=== PATIENT | female | born 1985 | race Caucasian/White ===

== ENCOUNTER 2018-10-30 13:25 | Emergency (ER) | payer BC, OTHER ==
[~2018-10-30] VITALS: Ht 160 cm; Wt 79.4 kg
--- NOTE | 2018-10-30 13:57 | ED Abdominal Pain ---
General Chief Complaint: Abdominal/GI Problems Stated Complaint: LOWER ABD PAIN Nursing Triage Note: Pt complaining of RLQ pain that started about 20 min ago Sepsis Screen: No Definite Risk Source of Information: Patient Exam Limitations: No Limitations History of Present Illness Date Seen by Provider: October 30, 2018 Time Seen by Provider: 13:56 Initial Comments To ER per private vehicle with reports of rather sudden onset of right-sided periumbilical abdominal pain that began 20 minutes ago. She had associated nausea but no vomiting. She was constipated earlier in the week but has had a bowel movement and is no longer constipated. She's never had this pain before. Denies any dysuria. Timing/Duration: 1/2 Hour Severity/Quality: Severe Location: RLQ, Periumbilical Radiation: No Radiation Activities at Onset: None Modifying Factors: Worsens With Movement Allergies and Home Medications Allergies Coded Allergies: Penicillins (Verified Allergy, Unknown, 10/30/18) acetaminophen (Verified Allergy, Unknown, 10/30/18) oxycodone (Verified Allergy, Unknown, 10/30/18) Patient Home Medication List Home Medication List Reviewed: Yes Review of Systems Review of Systems Constitutional: see HPI; No chills, No fever EENTM: No Symptoms Reported Respiratory: No Symptoms Reported Cardiovascular: No Symptoms Reported Gastrointestinal: See HPI, Abdominal Pain; Denies Constipated, Denies Diarrhea ; Nausea Genitourinary: No Symptoms Reported Musculoskeletal: no symptoms reported Skin: no symptoms reported Psychiatric/Neurological: No Symptoms Reported Endocrine: No Symptoms Reported Hematologic/Lymphatic: No Symptoms Reported Past Tokoits-Fnzclt-Ivthza Hx Patient Social History Alcohol Use: Denies Use Recreational Drug Use: No Smoking Status: Never a Smoker 2nd Hand Smoke Exposure: No Recent Foreign Travel: No Contact w/Someone Who Travel: No Recent Infectious Disease Expo: No Recent Hopitalizations: No Physical Abuse: No Sexual Abuse: No Mistreated: No Past Medical History Surgeries: Yes Gallbladder, Tonsillectomy, Tubal Ligation Respiratory: No Cardiac: No 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 oz. [id number]; BMI Method:Stated General Appearance: WD/WN, no apparent distress HEENT: PERRL/EOMI, normal ENT inspection Neck: non-tender, full range of motion Respiratory: no respiratory distress, no accessory muscle use Cardiovascular: regular rate, rhythm, no murmur Gastrointestinal: normal bowel sounds, soft, rebound, tenderness Extremities: normal range of motion, non-tender Neurologic/Psychiatric: alert, normal mood/affect, oriented x 3 Skin: normal color, warm/dry Progress/Results/Core Measures Results/Orders Lab Results Laboratory Tests Test 10/30/18 13:39 10/30/18 14:03 Range/Units White Blood Count 11.7 H 4.3-11.0 10^3/uL Red Blood Count 4.66 4.35-5.85 10^6/uL Hemoglobin 13.6 11.5-16.0 G/DL Hematocrit 40 35-52 % Mean Corpuscular Volume 86 80-99 FL Mean Corpuscular Hemoglobin 29 25-34 PG Mean Corpuscular Hemoglobin Concent 34 32-36 G/DL Red Cell Distribution Width 13.6 10.0-14.5 % Platelet Count 408 H 130-400 10^3/uL Mean Platelet Volume 10.1 7.4-10.4 FL Neutrophils (%) (Auto) 59 42-75 % Lymphocytes (%) (Auto) 31 12-44 % Monocytes (%) (Auto) 9 0-12 % Eosinophils (%) (Auto) 2 0-10 % Basophils (%) (Auto) 0 0-10 % Neutrophils # (Auto) 6.9 1.8-7.8 X 10^3 Lymphocytes # (Auto) 3.6 1.0-4.0 X 10^3 Monocytes # (Auto) 1.0 0.0-1.0 X 10^3 Eosinophils # (Auto) 0.2 0.0-0.3 10^3/uL Basophils # (Auto) 0.0 0.0-0.1 10^3/uL Sodium Level 140 135-145 MMOL/L Potassium Level 3.6 3.6-5.0 MMOL/L Chloride Level 105 98-107 MMOL/L Carbon Dioxide Level 27 21-32 MMOL/L Anion Gap 8 5-14 MMOL/L Blood Urea Nitrogen 10 7-18 MG/DL Creatinine 0.83 0.60-1.30 MG/DL Estimat Glomerular Filtration Rate > 60 BUN/Creatinine Ratio 12 Glucose Level 87 70-105 MG/DL Calcium Level 10.0 8.5-10.1 MG/DL Corrected Calcium 9.6 8.5-10.1 MG/DL Total Bilirubin 0.4 0.1-1.0 MG/DL Aspartate Amino Transf (AST/SGOT) 15 5-34 U/L Alanine Aminotransferase (ALT/SGPT) 13 0-55 U/L Alkaline Phosphatase 76 40-136 U/L Total Protein 8.1 6.4-8.2 GM/DL Albumin 4.5 3.2-4.5 GM/DL Urine Color YELLOW Urine Clarity SLIGHTLY CLOUDY Urine pH 6.5 5-9 Urine Specific [place] 1.010 L 1.016-1.022 Urine Protein NEGATIVE NEGATIVE Urine Glucose (UA) NEGATIVE NEGATIVE Urine Ketones NEGATIVE NEGATIVE Urine Nitrite NEGATIVE NEGATIVE Urine Bilirubin NEGATIVE NEGATIVE Urine Urobilinogen NORMAL NORMAL MG/DL Urine Leukocyte Esterase NEGATIVE NEGATIVE Urine RBC (Auto) NEGATIVE NEGATIVE Urine RBC NONE /HPF Urine WBC 0-2 /HPF Urine Squamous Epithelial Cells 2-5 /HPF Urine Crystals NONE /LPF Urine Bacteria TRACE /HPF Urine Casts NONE /LPF Urine Mucus NEGATIVE /LPF Urine Culture Indicated NO My Orders Orders - MYRIAM ALVARADO APRN Ua Culture If Indicated (10/30/18 13:51) Cbc With Automated Diff (10/30/18 13:51) Comprehensive Metabolic Panel (10/30/18 13:51) Ed Iv/Invasive Line Start (10/30/18 13:51) Urine Bedside (10/30/18 13:51) Ketorolac Injection (Toradol Injection) (10/30/18 14:00) Fentanyl Injection (Sublimaze Injection (10/30/18 14:00) Ondansetron Injection (Zofran Injectio (10/30/18 14:00) Ct Abd/Pelv W (Appendicitis) (10/30/18 13:54) Iohexol Injection (Omnipaque 350 Mg/Ml 1 (10/30/18 14:30) Received Contrast (Hold Metformin- Contr (10/30/18 14:30) Medications Given in ED Current Medications Medications Dose Ordered Sig/Darell Route Start Time Stop Time Status Last Admin Dose Admin Fentanyl Citrate 50 mcg ONCE ONCE IVP 10/30/18 14:00 10/30/18 14:01 DC 10/30/18 14:06 50 MCG Iohexol 100 ml ONCE ONCE IV 10/30/18 14:30 10/30/18 14:45 DC 10/30/18 14:41 100 ML Ketorolac Tromethamine 15 mg ONCE ONCE IVP 10/30/18 14:00 10/30/18 14:01 DC 10/30/18 14:06 15 MG Ondansetron HCl 8 mg ONCE ONCE IVP 10/30/18 14:00 10/30/18 14:01 DC 10/30/18 14:06 8 MG Vital Signs/I&O 10/30/18 13:35 Temp 97.7 Pulse 81 Resp 16 B/P (MAP) 143/86 (105) Pulse Ox 97 O2 Delivery Room Air Blood Pressure Mean: 105 Diagnostic Imaging Diagonstic Imaging: CT Comments NAME: SERGIO BOLTON [facility] REC#: [id number] PT STATUS: REG ER : 1985 PHYSICIAN: MYRIAM ALVARADO APRN ADMIT DATE: 10/30/18/ER Draft Date of Exam:10/30/18 CT ABD/PELV W (APPENDICITIS) PROCEDURE: CT abdomen and pelvis with contrast, rule out appendicitis. TECHNIQUE: Multiple contiguous axial images were obtained through the abdomen and pelvis after the administration of intravenous contrast. INDICATION: Right-sided abdominal pain. COMPARISON: None. FINDINGS: The lung bases are clear. The heart is normal in size. There is no pericardial effusion. The liver demonstrates no focal lesions. Cholecystectomy clips are noted. The spleen appears normal. The pancreas is normal. The adrenal glands appear normal. The kidneys are unremarkable. The bowel loops are nondistended without evidence of obstruction. The appendix is normal (image 94 series 3). There are no secondary signs of appendicitis. There are hyperdensities within the bowel, which likely represent ingested medication. No free fluid or free air is seen. There is nonspecific fatty infiltration of the wall of the colon. No significant pericolonic edema or fluid collections are seen. There are multiple follicles seen in the ovaries bilaterally, with no large masses seen. No lymphadenopathy is seen. No acute osseous abnormality is present. There are mild degenerative changes at L5-S1. IMPRESSION: 1. No appendicitis. 2. No bowel obstruction. No free fluid or free air. 3. Fat density within the colonic wall. This is nonspecific, but can be seen with chronic inflammation. Dictated on workstation # [id number] Dict: 10/30/18 1441 Trans: 10/30/18 1452 [facility] [id number] Interpreted by: CORNELIO BERNAL MD Electronically signed by: Departure Communication (Admissions) NAME: SERGIO BOLTON [facility] REC#: [id number] PT STATUS: REG ER : 1985 PHYSICIAN: MYRIAM ALVARADO APRN ADMIT DATE: 10/30/18/ER Draft Date of Exam:10/30/18 CT ABD/PELV W (APPENDICITIS) PROCEDURE: CT abdomen and pelvis with contrast, rule out appendicitis. TECHNIQUE: Multiple contiguous axial images were obtained through the abdomen and pelvis after the administration of intravenous contrast. INDICATION: Right-sided abdominal pain. COMPARISON: None. FINDINGS: The lung bases are clear. The heart is normal in size. There is no pericardial effusion. The liver demonstrates no focal lesions. Cholecystectomy clips are noted. The spleen appears normal. The pancreas is normal. The adrenal glands appear normal. The kidneys are unremarkable. The bowel loops are nondistended without evidence of obstruction. The appendix is normal (image 94 series 3). There are no secondary signs of appendicitis. There are hyperdensities within the bowel, which likely represent ingested medication. No free fluid or free air is seen. There is nonspecific fatty infiltration of the wall of the colon. No significant pericolonic edema or fluid collections are seen. There are multiple follicles seen in the ovaries bilaterally, with no large masses seen. No lymphadenopathy is seen. No acute osseous abnormality is present. There are mild degenerative changes at L5-S1. IMPRESSION: 1. No appendicitis. 2. No bowel obstruction. No free fluid or free air. 3. Fat density within the colonic wall. This is nonspecific, but can be seen with chronic inflammation. Dictated on workstation # [id number] Dict: 10/30/18 1441 Trans: 10/30/18 1452 [facility] [id number] Interpreted by: CORNELIO BERNAL MD Electronically signed by: Impression Primary Impression: Right lower quadrant pain Additional Impression: Bowel wall thickening Disposition: HOME, SELF-CARE Condition: Stable Departure-Patient Inst. Decision time for Depature: 15:01 Patient Instructions: No Instuctions Given Add. Discharge Instructions: 1. There is no appendicitis. The appendix is normal in appearance. The wall of the colon has a fatty appearance to it which can be seen with long-term inflammation such as perhaps Crohn's disease or ulcerative colitis. You should follow-up with one of the surgeons listed to schedule a colonoscopy within the next few weeks. Take the steroids and antibiotics as directed. Scripts Methylprednisolone (Medrol) 4 Mg Tab.ds.pk 4 MG PO UD for 6 Days, #21 PKG PER DOSE PACK INSTRUCTIONS Prov: MYRIAM ALVARADO APRN 10/30/18 Metronidazole (Metronidazole) 500 Mg Tablet 500 MG PO BID, #10 TAB 0 Refills Prov: MYRIAM ALVARADO APRN 10/30/18 Sulfamethoxazole/Trimethoprim (Bactrim Ds Tablet) 1 Each Tablet 1 EACH PO BID, #10 TAB Prov: MYRIAM ALVARADO APRN 10/30/18 MYRIAM ALVARADO APRN October 30, 2018 13:57
[2018-10-30 13:59] LABS: BASOPHILS % (AUTO) 0 % (0-10); EOSINOPHILS # (AUTO) 0.2 10^3/uL (0.0-0.3); EOSINOPHILS % (AUTO) 2 % (0-10); HEMATOCRIT 40 % (35-52); HEMOGLOBIN 13.6 G/DL (11.5-16.0); LYMPHOCYTES # (AUTO) 3.6 X 10^3 (1.0-4.0); LYMPHOCYTES % (AUTO) 31 % (12-44); MEAN CORPUSCULAR HEMOGLOBIN 29 PG (25-34); MEAN CORPUSCULAR HGB CONC 34 G/DL (32-36); MEAN CORPUSCULAR VOLUME 86 FL (80-99); MEAN PLATELET VOLUME 10.1 FL (7.4-10.4); MONOCYTES % (AUTO) 9 % (0-12); NEUTROPHILS # (AUTO) 6.9 X 10^3 (1.8-7.8); NEUTROPHILS % (AUTO) 59 % (42-75); PLATELET COUNT 408 10^3/uL (130-400); RED CELL DISTRIBUTION WIDTH 13.6 % (10.0-14.5); WHITE BLOOD COUNT 11.7 10^3/uL (4.3-11.0)
[2018-10-30] MEDS ORDERED: ONDANSETRON 4 MG/2 ML (SDV) Z0FRAN IVP ONE (14:00)
[2018-10-30] MEDS ORDERED: KETOROLAC 30 MG/ML VIAL IVP ONE (14:00)
[2018-10-30] MEDS ORDERED: fentaNYL INJECTION 100 MCG/2 ML AMP IVP ONE (14:00)
[2018-10-30 14:12] LABS: ALANINE AMINOTRANSFERASE 13 U/L (0-55); ALBUMIN 4.5 GM/DL (3.2-4.5); ALKALINE PHOSPHATASE 76 U/L (40-136); BILIRUBIN,TOTAL 0.4 MG/DL (0.1-1.0); BUN/CREATININE RATIO 12; CARBON DIOXIDE 27 MMOL/L (21-32); CHLORIDE 105 MMOL/L (98-107); CREATININE SERUM 0.83 MG/DL (0.60-1.30); GFR ESTIMATED > 60; GLUCOSE 87 MG/DL (70-105); POTASSIUM 3.6 MMOL/L (3.6-5.0); SODIUM 140 MMOL/L (135-145); TOTAL PROTEIN 8.1 GM/DL (6.4-8.2)
[2018-10-30 14:18] LABS: BILIRUBIN,URINE NEGATIVE (NEGATIVE); CLARITY,URINE SLIGHTLY CLOUDY; COLOR,URINE YELLOW; GLUCOSE, URINE (UA) NEGATIVE (NEGATIVE); KETONES,URINE NEGATIVE (NEGATIVE); LEUKOCYTE ESTERASE ,URINE NEGATIVE (NEGATIVE); NITRITE,URINE NEGATIVE (NEGATIVE); PH,URINE 6.5 (5-9); PROTEIN,URINE NEGATIVE (NEGATIVE); UROBILINOGEN,URINE NORMAL (NORMAL)
[2018-10-30 14:26] LABS: BACTERIA,URINE TRACE /HPF; WBC,URINE 0-2 /HPF
[2018-10-30] MEDS ORDERED: HOLD METFORMIN - RECEIVED CONTRAST 20 ML VIAL IV SCH (14:30)
[2018-10-30] MEDS ORDERED: IOHEXOL 350 MG/ML 100 ML (OMNIPAQUE 350) VIAL IV ONE (14:30)
--- NOTE | 2018-10-30 14:52 | Diagnostic Imaging Report ---
PROCEDURE: CT abdomen and pelvis with contrast, rule out appendicitis. TECHNIQUE: Multiple contiguous axial images were obtained through the abdomen and pelvis after the administration of intravenous contrast. INDICATION: Right-sided abdominal pain. COMPARISON: None. FINDINGS: The lung bases are clear. The heart is normal in size. There is no pericardial effusion. The liver demonstrates no focal lesions. Cholecystectomy clips are noted. The spleen appears normal. The pancreas is normal. The adrenal glands appear normal. The kidneys are unremarkable. The bowel loops are nondistended without evidence of obstruction. The appendix is normal (image 94 series 3). There are no secondary signs of appendicitis. There are hyperdensities within the bowel, which likely represent ingested medication. No free fluid or free air is seen. There is nonspecific fatty infiltration of the wall of the colon. No significant pericolonic edema or fluid collections are seen. There are multiple follicles seen in the ovaries bilaterally, with no large masses seen. No lymphadenopathy is seen. No acute osseous abnormality is present. There are mild degenerative changes at L5-S1. IMPRESSION: 1. No appendicitis. 2. No bowel obstruction. No free fluid or free air. 3. Fat density within the colonic wall. This is nonspecific, but can be seen with chronic inflammation. Dictated by: Dictated on workstation # [id number]
[2018-10-30] MEDS ORDERED: METH4TAB PO (15:03)
[2018-10-30] MEDS ORDERED: METR-145 PO (15:03)
[2018-10-30] MEDS ORDERED: SULF1TAB35 PO (15:03)
[2018-10-30 15:11] VITALS: BP 119/92
== END 2018-10-30 15:11 | disposition home or self-care (01) ==
LOC: ER 13:26
DX: R10.31 Right lower quadrant pain (principal); K63.89 Other specified diseases of intestine; K58.9 Irritable bowel syndrome, unspecified; Z88.0 Allergy status to penicillin; Z88.5 Allergy status to narcotic agent; Z88.6 Allergy status to analgesic agent; Z98.51 Tubal ligation status; Z90.89 Acquired absence of other organs
CPT/HCPCS: 36415; 74177; 80053; 81000; 84703; 85025; 96374; 96375

== ENCOUNTER 2018-11-04 18:03 | Observation (INO) | payer BC ==
[~2018-11-04] VITALS: Ht 160 cm; Wt 82.1 kg
[~2018-11-04 18:03] MED LIST: METH4TAB PO; METR-145 PO; SULF1TAB35 PO
--- NOTE | 2018-11-04 18:13 | ED GI ---
General Chief Complaint: Abdominal/GI Problems Stated Complaint: DEHYDRATED, N/V/D, STOMACH PAIN Source of Information: Patient Exam Limitations: No Limitations History of Present Illness Date Seen by Provider: November 04, 2018 Time Seen by Provider: 18:13 Initial Comments To ER by mother with reports of diffuse abdominal pain, nausea vomiting diarrhea. She was seen here by me on 10/30/18 with right lower quadrant pain [id number]. Labs were unremarkable CT scan showed fatty infiltration of the wall of the colon which is nonspecific but could be seen with chronic inflammation. She was discharged on steroids, Bactrim and Flagyl. She took both the Bactrim and the Flagyl, steroids were too hard on her stomach so she did not take those she did see her primary care provider Dr. Parrish who gave her an injection of steroids on . On 11/01/18 she had a negative stool culture. Today, she presents on her last day of antibiotic treatment with worsening diarrhea, nausea vomiting. The abdominal pain persists but it is not worse.. She called primary care who wanted to direct admit her but was unable to accomplish that so referred her to the emergency room. Timing/Duration: 1 Week Severity/Quality: Moderate Location: Generalized Abdomen Radiation: No Radiation Activities at Onset: None Associated Symptoms: Nausea/Vomiting Allergies and Home Medications Allergies Coded Allergies: Penicillins (Verified Allergy, Unknown, 10/30/18) acetaminophen (Verified Allergy, Unknown, 10/30/18) oxycodone (Verified Allergy, Unknown, 10/30/18) Home Medications Methylprednisolone 4 Mg Tab.ds.pk, 4 MG PO UD PER DOSE PACK INSTRUCTIONS Prescribed by: MYRIAM ALVARADO on 10/30/18 1503 Metronidazole 500 Mg Tablet, 500 MG PO BID Prescribed by: MYRIAM ALVARADO on 10/30/18 1503 Sulfamethoxazole/Trimethoprim 1 Each Tablet, 1 EACH PO BID Prescribed by: MYRIAM ALVARADO on 10/30/18 1503 Patient Home Medication List Home Medication List Reviewed: Yes Review of Systems Review of Systems Constitutional: see HPI EENTM: No Symptoms Reported Respiratory: No Symptoms Reported Cardiovascular: No Symptoms Reported Gastrointestinal: See HPI, Abdominal Pain, Diarrhea, Nausea, Vomiting Genitourinary: No Symptoms Reported Musculoskeletal: no symptoms reported Skin: no symptoms reported Psychiatric/Neurological: No Symptoms Reported Endocrine: No Symptoms Reported Hematologic/Lymphatic: No Symptoms Reported Past Fczfrst-Pprivf-Uclihb Hx Patient Social History 2nd Hand Smoke Exposure: No Recent Foreign Travel: No Contact w/Someone Who Travel: No Recent Hopitalizations: No Past Medical History Surgeries: Yes Gallbladder, Tonsillectomy, Tubal Ligation Respiratory: No Cardiac: No 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 oz. 79.661486ad; BMI Method:Stated General Appearance: WD/WN, no apparent distress HEENT: PERRL/EOMI, normal ENT inspection Neck: non-tender, full range of motion Respiratory: no respiratory distress, no accessory muscle use Cardiovascular: regular rate, rhythm, no murmur Gastrointestinal: normal bowel sounds, soft, tenderness (exquisitely tender to palpation on the right side) Extremities: normal range of motion, non-tender Neurologic/Psychiatric: alert, normal mood/affect, oriented x 3 Skin: normal color, warm/dry Progress/Results/Core Measures Results/Orders Lab Results Laboratory Tests Test 11/04/18 18:13 11/04/18 18:21 Range/Units White Blood Count 15.1 H 4.3-11.0 10^3/uL Red Blood Count 5.08 4.35-5.85 10^6/uL Hemoglobin 14.7 11.5-16.0 G/DL Hematocrit 43 35-52 % Mean Corpuscular Volume 85 80-99 FL Mean Corpuscular Hemoglobin 29 25-34 PG Mean Corpuscular Hemoglobin Concent 34 32-36 G/DL Red Cell Distribution Width 13.5 10.0-14.5 % Platelet Count 437 H 130-400 10^3/uL Mean Platelet Volume 9.8 7.4-10.4 FL Neutrophils (%) (Auto) 67 42-75 % Lymphocytes (%) (Auto) 24 12-44 % Monocytes (%) (Auto) 8 0-12 % Eosinophils (%) (Auto) 1 0-10 % Basophils (%) (Auto) 0 0-10 % Neutrophils # (Auto) 10.1 H 1.8-7.8 X 10^3 Lymphocytes # (Auto) 3.7 1.0-4.0 X 10^3 Monocytes # (Auto) 1.2 H 0.0-1.0 X 10^3 Eosinophils # (Auto) 0.1 0.0-0.3 10^3/uL Basophils # (Auto) 0.1 0.0-0.1 10^3/uL Neutrophils % (Manual) 70 % Lymphocytes % (Manual) 22 % Monocytes % (Manual) 6 % Eosinophils % (Manual) 2 % Basophils % (Manual) 0 % Band Neutrophils 0 % Blood Morphology Comment NORMAL Erythrocyte Sedimentation Rate 14 0-20 MM/HR Sodium Level 140 135-145 MMOL/L Potassium Level 3.9 3.6-5.0 MMOL/L Chloride Level 105 98-107 MMOL/L Carbon Dioxide Level 20 L 21-32 MMOL/L Anion Gap 15 H 5-14 MMOL/L Blood Urea Nitrogen 6 L 7-18 MG/DL Creatinine 0.87 0.60-1.30 MG/DL Estimat Glomerular Filtration Rate > 60 BUN/Creatinine Ratio 7 Glucose Level 99 70-105 MG/DL Calcium Level 10.2 H 8.5-10.1 MG/DL Corrected Calcium 8.5-10.1 MG/DL Total Bilirubin 0.4 0.1-1.0 MG/DL Aspartate Amino Transf (AST/SGOT) 19 5-34 U/L Alanine Aminotransferase (ALT/SGPT) 19 0-55 U/L Alkaline Phosphatase 88 40-136 U/L C-Reactive Protein High Sensitivity 0.20 0.00-0.50 MG/DL Total Protein 8.4 H 6.4-8.2 GM/DL Albumin 4.6 H 3.2-4.5 GM/DL Lipase 7 L 8-78 U/L Serum Test, Qualitative NEGATIVE NEGATIVE Urine Color YELLOW Urine Clarity VERY CLOUDY H Urine pH 6 5-9 Urine Specific [place] 1.025 H 1.016-1.022 Urine Protein 1+ H NEGATIVE Urine Glucose (UA) NEGATIVE NEGATIVE Urine Ketones NEGATIVE NEGATIVE Urine Nitrite NEGATIVE NEGATIVE Urine Bilirubin NEGATIVE NEGATIVE Urine Urobilinogen NORMAL NORMAL MG/DL Urine Leukocyte Esterase 2+ H NEGATIVE Urine RBC (Auto) 2+ H NEGATIVE Urine RBC 0-2 /HPF Urine WBC 5-10 H /HPF Urine Squamous Epithelial Cells 10-25 H /HPF Urine Crystals NONE /LPF Urine Bacteria MODERATE H /HPF Urine Casts NONE /LPF Urine Mucus SMALL H /LPF Urine Yeast FEW H /HPF Urine Culture Indicated YES My Orders Orders - MYRIAM ALVARADO APRN Cbc With Automated Diff (11/04/18 18:08) Comprehensive Metabolic Panel (11/04/18 18:08) Ua Culture If Indicated (11/04/18 18:08) Hcg,Qualitative Serum (11/04/18 18:08) Ed Iv/Invasive Line Start (11/04/18 18:08) Lipase (11/04/18 18:08) Ondansetron Injection (Zofran Injectio (11/04/18 18:15) Ns Iv 1000 Ml (Sodium Chloride 0.9%) (11/04/18 18:15) Erythrocyte Sedimentation Rate (11/04/18 18:14) Hs C Reactive Protein (11/04/18 18:14) Methylprednisolone Sod Succ (Solu-Medrol (11/04/18 18:15) Fentanyl Injection (Sublimaze Injection (11/04/18 18:15) Manual Differential (11/04/18 18:13) Urine Culture (11/04/18 18:21) Promethazine Injection (Phenergan Injec (11/04/18 18:45) Ct Abd/Pelv W (Appendicitis) (11/04/18 18:56) Antacid Suspension (Mylanta Suspension (11/04/18 19:15) Lidocaine 2% Viscous 15 Ml (Xylocaine Vi (11/04/18 19:15) Medications Given in ED Current Medications Medications Dose Ordered Sig/Darell Route Start Time Stop Time Status Last Admin Dose Admin Al Hydrox/Mg Hydrox/Simethicone 30 ml ONCE ONCE PO 11/04/18 19:15 11/04/18 19:16 DC 11/04/18 19:27 30 ML Fentanyl Citrate 50 mcg ONCE ONCE IVP 11/04/18 18:15 11/04/18 18:16 DC 11/04/18 18:28 50 MCG Lidocaine HCl 10 ml ONCE ONCE PO 11/04/18 19:15 11/04/18 19:16 DC 11/04/18 19:27 10 ML Methylprednisolone Sodium Succinate 125 mg ONCE ONCE IVP 11/04/18 18:15 11/04/18 18:16 DC 11/04/18 18:27 125 MG Promethazine HCl 12.5 mg ONCE ONCE IVP 11/04/18 18:45 11/04/18 18:46 DC 11/04/18 18:58 12.5 MG Vital Signs/I&O 11/04/18 18:09 Temp 97.6 Pulse 80 Resp 18 B/P (MAP) 152/100 (117) Pulse Ox 99 O2 Delivery Room Air Departure Communication (Admissions) Time/Spoke to Admitting Phy: 19:[address] Vora, will admit consult surgery, no antibiotics or steroids at this time except for the first dose of Solu-Medrol given in the emergency room. Time/Spoke to Consulting Phy: 19:[address] Yan, agrees to consult. Impression Primary Impression: intractable nausea vomiting diarrhea Disposition: ADMITTED INPATIENT Condition: Stable Admissions Decision to Admit Reason: Admit from ER (General) Decision to Admit/Date: November 04, 2018 Time/Decision to Admit Time: 19:54 Departure-Patient Inst. Referrals: KAREEM PARRISH MD (PCP/Family) Primary Care Physician MYRIAM ALVARADO APRN November 04, 2018 18:13
[2018-11-04] MEDS ORDERED: methylPREDNISolone 125 MG (Solu-MEDROL) VIAL IVP ONE (18:15)
[2018-11-04] MEDS ORDERED: ONDANSETRON 4 MG/2 ML (SDV) Z0FRAN IVP ONE (18:15)
[2018-11-04] MEDS ORDERED: NS IV 1000 ML 1,000 ML IV SCH (18:15)
[2018-11-04] MEDS ORDERED: fentaNYL INJECTION 100 MCG/2 ML AMP IVP ONE (18:15)
[2018-11-04 18:22] LABS: BASOPHILS # (AUTO) 0.1 10^3/uL (0.0-0.1); BASOPHILS % (AUTO) 0 % (0-10); EOSINOPHILS # (AUTO) 0.1 10^3/uL (0.0-0.3); EOSINOPHILS % (AUTO) 1 % (0-10); HEMATOCRIT 43 % (35-52); HEMOGLOBIN 14.7 G/DL (11.5-16.0); LYMPHOCYTES # (AUTO) 3.7 X 10^3 (1.0-4.0); LYMPHOCYTES % (AUTO) 24 % (12-44); MEAN CORPUSCULAR HEMOGLOBIN 29 PG (25-34); MEAN CORPUSCULAR HGB CONC 34 G/DL (32-36); MEAN CORPUSCULAR VOLUME 85 FL (80-99); MEAN PLATELET VOLUME 9.8 FL (7.4-10.4); MONOCYTES # (AUTO) 1.2 X 10^3 (0.0-1.0); MONOCYTES % (AUTO) 8 % (0-12); NEUTROPHILS # (AUTO) 10.1 X 10^3 (1.8-7.8); NEUTROPHILS % (AUTO) 67 % (42-75); PLATELET COUNT 437 10^3/uL (130-400); RED CELL DISTRIBUTION WIDTH 13.5 % (10.0-14.5); WHITE BLOOD COUNT 15.1 10^3/uL (4.3-11.0)
[2018-11-04 18:28] LABS: BILIRUBIN,URINE NEGATIVE (NEGATIVE); CLARITY,URINE VERY CLOUDY; COLOR,URINE YELLOW; GLUCOSE, URINE (UA) NEGATIVE (NEGATIVE); KETONES,URINE NEGATIVE (NEGATIVE); LEUKOCYTE ESTERASE ,URINE 2+ (NEGATIVE); NITRITE,URINE NEGATIVE (NEGATIVE); PH,URINE 6 (5-9); PROTEIN,URINE 1+ (NEGATIVE); UROBILINOGEN,URINE NORMAL (NORMAL)
[2018-11-04 18:36] LABS: BACTERIA,URINE MODERATE /HPF; RBC,URINE 0-2 /HPF
[2018-11-04 18:37] LABS: YEAST,URINE FEW /HPF
[2018-11-04 18:39] LABS: ALBUMIN 4.6 GM/DL (3.2-4.5); ALKALINE PHOSPHATASE 88 U/L (40-136); BILIRUBIN,TOTAL 0.4 MG/DL (0.1-1.0); BUN/CREATININE RATIO 7; CALCIUM 10.2 MG/DL (8.5-10.1); CARBON DIOXIDE 20 MMOL/L (21-32); CHLORIDE 105 MMOL/L (98-107); CREATININE SERUM 0.87 MG/DL (0.60-1.30); GFR ESTIMATED > 60; GLUCOSE 99 MG/DL (70-105); LIPASE 7 U/L (8-78); POTASSIUM 3.9 MMOL/L (3.6-5.0); SODIUM 140 MMOL/L (135-145); TOTAL PROTEIN 8.4 GM/DL (6.4-8.2)
[2018-11-04] MEDS ORDERED: PROMETHAZINE INJ 25 MG/ML (PHENERGAN) AMP IVP ONE (18:45)
[2018-11-04 18:49] LABS: BAND NEUTROPHILS 0 %; BASOPHILS % (MANUAL) 0 %; LYMPHOCYTES % (MANUAL) 22 %; MONOCYTES % (MANUAL) 6 %; NEUTROPHILS % (MANUAL) 70 %
[2018-11-04 18:50] LABS: EOSINOPHILS % (MANUAL) 2 %; ERYTHROCYTE SEDIMENTATION RATE 14 MM/HR (0-20); RBC MORPH NORMAL
[2018-11-04 18:51] LABS: ALANINE AMINOTRANSFERASE 19 U/L (0-55)
[2018-11-04] MEDS ORDERED: ANTACID SUSP 30 ML UDC (MYLANTA) PO ONE (19:15)
[2018-11-04] MEDS ORDERED: LIDOCAINE 2% VISCOUS 15 ML UDC PO ONE (19:15)
--- NOTE | 2018-11-04 20:04 | Diagnostic Imaging Report ---
INDICATION: Right-sided flank pain with nausea and vomiting. CT of the abdomen and pelvis obtained with IV contrast bolus. Comparison made to 10/30/2018. Visualized portions of the lung bases are clear. There are no pleural fluid collections. There is no free intraperitoneal air. The liver shows a tiny cyst in the right lobe anteriorly and posteriorly. Patient has had prior cholecystectomy. Spleen, adrenals, and pancreas are normal. The kidneys bilaterally show no hydronephrosis or mass. There is no retroperitoneal mass or adenopathy. There is no ascites or abnormal fluid collection. There is no pelvic mass or free fluid. Visualized bowel loops appear unremarkable. There is a 2.1 cm left adnexal cyst which is new compared to the prior study. There is no periappendiceal inflammatory change. IMPRESSION: A 2.1 cm left adnexal cyst. No CT evidence of appendicitis or acute process otherwise seen. Evidence of previous cholecystectomy. Dictated by: Dictated on workstation # [id number]
[2018-11-04 20:35] VITALS: BP 112/70
--- NOTE | 2018-11-04 20:35 | NUR ---
SERGIO BOLTON Za admitted to room 429-1, with an admitting diagnosis of intractable nausea/vomiting/diarrhea, on 11/04/18 from ER via , accompanied by and er staff. SERGIO BOLTON introduced to surroundings, call light, bed controls, phone, TV, temperature control, lights, meal times, smoking policy, visitor policy, side rail policy, bathrooms and showers. Patient Rights given to patient in the handbook. SERGIO BOLTON verbalizes understanding that [facility] is not responsible for the loss or damage to any personal effects or valuables that are kept in the patients possession during their hospitalization.
[2018-11-04 20:41] VITALS: BP 112/70
[2018-11-04] MEDS ORDERED: LACTATED RINGERS 1,000 ML IV ONE (21:02)
[2018-11-04] MEDS ORDERED: fluCOnazole (DIFLUCAN) 100 MG TAB PO SCH (21:10)
[2018-11-04] MEDS ORDERED: PROMETHAZINE INJ 25 MG/ML (PHENERGAN) AMP IV PRN (21:15)
[2018-11-04] MEDS ORDERED: fentaNYL INJECTION 100 MCG/2 ML AMP IV PRN (21:15)
[2018-11-04] MEDS: LACTATED RINGERS 1,000 ML IV SCH (21:26)
[2018-11-05 00:05] VITALS: BP 116/56
[2018-11-05] MEDS: HYOSCYAMINE 0.125 MG (LEVSIN) TAB SL SCH ×3 (00:06→11:43)
[2018-11-05] MEDS: ONDANSETRON 4 MG/2 ML (SDV) Z0FRAN IV PRN ×2 (00:13→09:07)
[2018-11-05 03:20] VITALS: BP 115/66
[2018-11-05] MEDS: LACTATED RINGERS 1,000 ML IV SCH ×2 (03:20→08:04)
[2018-11-05 06:53] LABS: BASOPHILS % (AUTO) 0 % (0-10); EOSINOPHILS % (AUTO) 0 % (0-10); HEMATOCRIT 38 % (35-52); HEMOGLOBIN 12.8 G/DL (11.5-16.0); LYMPHOCYTES # (AUTO) 1.2 X 10^3 (1.0-4.0); LYMPHOCYTES % (AUTO) 8 % (12-44); MEAN CORPUSCULAR HEMOGLOBIN 29 PG (25-34); MEAN CORPUSCULAR HGB CONC 34 G/DL (32-36); MEAN CORPUSCULAR VOLUME 86 FL (80-99); MEAN PLATELET VOLUME 9.7 FL (7.4-10.4); MONOCYTES # (AUTO) 0.1 X 10^3 (0.0-1.0); MONOCYTES % (AUTO) 1 % (0-12); NEUTROPHILS # (AUTO) 14.2 X 10^3 (1.8-7.8); NEUTROPHILS % (AUTO) 91 % (42-75); PLATELET COUNT 382 10^3/uL (130-400); RED CELL DISTRIBUTION WIDTH 13.1 % (10.0-14.5); WHITE BLOOD COUNT 15.6 10^3/uL (4.3-11.0)
[2018-11-05 07:12] LABS: BUN/CREATININE RATIO 9; CALCIUM 8.9 MG/DL (8.5-10.1); CARBON DIOXIDE 19 MMOL/L (21-32); CHLORIDE 110 MMOL/L (98-107); GFR ESTIMATED > 60; GLUCOSE 136 MG/DL (70-105); POTASSIUM 4.3 MMOL/L (3.6-5.0); SODIUM 138 MMOL/L (135-145)
[2018-11-05 08:00] VITALS: BP 106/61
[2018-11-05 12:00] VITALS: BP 114/78
--- NOTE | 2018-11-05 14:18 | History & Physical-Hospitalist ---
History of Present Illness HPI/Chief Complaint The patient is a 33-year-old white female who was admitted from the emergency room after she presented with unabating diffuse abdominal pain. Combined with nausea vomiting and diarrhea. She had been there last week with similar complaints. The CT performed at that time showed thickening of the colonic wall , which was stated to be possibly fatty infiltration. She had been given steroids and antibiotics which helped for a few days, but as they tapered off. She was again stricken with complaints. She reports that the onset of this goes back at least 5 years. She states that ultimately she had a cholecystectomy, which in fact increased her diarrhea for a period of time. A bit after that she had a colonoscopy which was nondiagnostic. Multiple providers have suggested the possibility of inflammatory bowel disease or specifically Crohn's disease. This is never been confirmed. She sees Dr. Barnes and had been scheduled for a colonoscopy for of this week. There has never been blood in the stools. There is no history of perirectal abscess or fistula. She has tried multiple dietary restrictions, which perhaps helped a bit but not consistently. She has settled down with her IV fluid replacement and anti-emetics. Date Seen 11/05/18 Time Seen by a Provider: 14:16 Attending Physician Greg Henriquez MD PCP Ryan Barnes MD Referring Physician Date of Admission November 04, 2018 at 18:52 Home Medications & Allergies Home Medications Reviewed patient Home Medication Reconciliation performed by pharmacy medication reconciliations brass instrument repair technician and/or nursing. Patients Allergies have been reviewed. Allergies Allergies Coded Allergies Penicillins (Verified Allergy, Unknown, 10/30/18) acetaminophen (Verified Allergy, Unknown, 10/30/18) oxycodone (Verified Allergy, Unknown, 10/30/18) Past Sdwczej-Cmihtc-Ewswdj Hx Past Med/Social Hx: Reviewed Nursing Past Med/Soc Hx Patient Social History Alcohol Use: Denies Use Recreational Drug Use: No 2nd Hand Smoke Exposure: No Physical Abuse Screen: No Sexual Abuse: No Recent Foreign Travel: No Contact w/other who traveled: No Recent Hopitalizations: No Recent Infectious Disease Expo: No Seasonal Allergies Seasonal Allergies: No Past Medical History Surgeries: Gallbladder, Tonsillectomy, Tubal Ligation Currently Using CPAP: No Currently Using BIPAP: No Tubal Ligation Genitourinary: Kidney Stones Gastrointestinal: Colitis, Gastroesophageal Reflux, Crohns Disease, Irritable Bowel History of Blood Disorders: No Family History Arthritis 19 MOTHER Cataracts maternal grandmother Dementia paternal grandmother Diabetes mellitus 19 FATHER (pre-diabetic) FH: aortic aneurysm 19 FATHER paternal grandfather FH: skin cancer 19 FATHER Gout 19 FATHER Hypertension 19 FATHER Irritable bowel syndrome G8 SISTER Kidney stone G8 SISTER Miscarriage 19 MOTHER Review of Systems Constitutional: see HPI EENTM: no symptoms reported Respiratory: no symptoms reported Cardiovascular: no symptoms reported Gastrointestinal: see HPI Genitourinary: no symptoms reported Musculoskeletal: no symptoms reported Skin: other (RAYNAUDS SYNDROME) Psychiatric/Neurological: No Symptoms Reported Physical Exam Physical Exam Vital Signs Vital Signs - First Documented 11/04/18 18:09 Temp 97.6 Pulse 80 Resp 18 B/P (MAP) 152/100 (117) Pulse Ox 99 O2 Delivery Room Air Capillary Refill : Less Than 3 Seconds Height, Weight, BMI Height: 5'3.00" Weight: 181lbs. 3.2oz. 82.165265mb; 31.6 BMI Method:Stated General Appearance: No Apparent Distress, WD/WN Eyes: Bilateral Eye Normal Inspection HEENT: Normal ENT Inspection Neck: Normal Inspection Respiratory: Chest Non Tender, Lungs Clear, Normal Breath Sounds, No Accessory Muscle Use, No Respiratory Distress Cardiovascular: Regular Rate, Rhythm, No Edema, No Gallop, No JVD, No Murmur, Normal Peripheral Pulses Gastrointestinal: Normal Bowel Sounds, No Organomegaly, Non Tender, Soft Back: Normal Inspection, No CVA Tenderness, No Vertebral Tenderness Extremity: Normal Capillary Refill, Normal Inspection, Normal Range of Motion Neurologic/Psychiatric: Alert, Oriented x3 Results Results/Procedures Labs Laboratory Tests 11/04/18 18:13 11/05/18 06:45 Patient resulted labs reviewed. Assessment/Plan Admission Diagnosis Intractable nausea vomiting and diarrhea. Admission Status: Observation Clinical Quality Measures DVT/VTE Risk/Contraindication: Risk Factor Score Per Nursin RFS Level Per Nursing on Admit: 2=Moderate GREG HENRIQUEZ MD November 05, 2018 14:18
--- NOTE | 2018-11-05 14:23 | Discharge Inst-Simple/Standard ---
Discharge Inst-Standard Patient Instructions/Follow Up Plan of Care/Instructions/FU: Keep appointment for colonoscopy . Clear liquid diet until then. Take colon prep as previously directed beginning Sunday night. Activity as Tolerated: Yes Discharge Diet: Other Diet DARSHAN HENRIQUEZ MD November 05, 2018 14:23
[2018-11-05 14:45] VITALS: BP 114/78
--- NOTE | 2018-11-05 15:34 | CONSULTATION REPORT ---
DATE OF SERVICE: 11/05/2018 ATTENDING PRIMARY CARE PHYSICIAN: Dr. Barnes. HISTORY OF PRESENT ILLNESS: The patient is a 33-year-old female who presented to the Emergency Department with nausea, vomiting and diarrhea. She reported that approximately one week ago, she had a similar episode of crampy abdominal pain with nausea and vomiting as well as diarrhea. She states that the CT scan was performed at the time and there was some mild inflammation of the mesentery of the terminal ileum, which may indicate some level of colitis versus a terminal ileitis. There is no appendicitis identified. She had another episode that was similar with nausea and vomiting. At this time, the nausea and vomiting were more severe. She also does report having some diarrhea as well as mucusy stools. She does not recall ever having any blood in her stools. She is currently scheduled for colonoscopy in the next two days. Her signs and symptoms may correlate with some type of inflammatory bowel disease including Crohn's disease based on the CT scan findings as well as her symptoms and slightly more consistent with a Crohn's. She also does report a history of gastroesophageal reflux disease and peptic ulcer disease and currently takes omeprazole 20 mg daily. PAST MEDICAL HISTORY: Asthma. PAST SURGICAL HISTORY: Tonsillectomy, laparoscopic cholecystectomy. ALLERGIES: No known drug allergies. MEDICATIONS: Omeprazole 20 mg daily. SOCIAL HISTORY: Negative smoke, negative alcohol. FAMILY HISTORY: Noncontributory. REVIEW OF SYSTEMS: Well-nourished female, in no acute distress. She is not experiencing any shortness of breath or difficulty breathing. No chest pain, palpitations, diaphoresis. Abdominal pain with intermittent episodes of nausea and vomiting in the past week. No hematemesis, no coffee ground emesis. She also reports associated crampy abdominal pain, more in the right lower abdominal quadrant. She also has had associated diarrhea as well as mucusy stools; however, no red blood per rectum. No fever, chills. No recent inadvertent weight loss. All other review of systems negative. PHYSICAL EXAMINATION: VITAL SIGNS: Stable. Afebrile. CHEST: Clear. Good breath sounds bilaterally. HEART: Regular. No murmurs. EXTREMITIES: No lower extremity edema. Negative Homans sign. HEENT: No scleral icterus. NECK: No cervical lymphadenopathy. ABDOMEN: Soft, nondistended. There is mild discomfort in the lower abdominal quadrants. No peritoneal signs. No hernias. SKIN: Warm, dry. ASSESSMENT AND PLAN: A 33-year-old female with crampy abdominal pain with associated nausea, vomiting as well as diarrhea. She reports that she has had some milder symptoms before in the past; however, in the past week this has become more severe. Her signs and symptoms as well as a recent CT scan, which did show some inflammation of the mesentery near the terminal ileum. She is scheduled for a colonoscopy, which may show some areas of inflammation, which may provide more information on the etiology of her symptoms including identification of an inflammatory bowel disease as well as what type and proper treatment modality. At this time, we will recommend continuation of a clear liquid diet and a bowel prep is already instructed and proceed with her colonoscopy in the next two days. Job ID: [id number] DocumentID: [id number] Dictated Date: 11/05/2018 15:02:02 Tentering Machine Feeder Date: 11/05/2018 15:33:34 Dictated By: MARRY SWANSON MD MTDD
[2018-11-05] MEDS ORDERED: POLYETHYLENE GLYCOL 17 GM (MIRALAX) PACK PO SCH (21:00)
[2018-11-06] MEDS ORDERED: CETI10TA20 PO (12:04)
[2018-11-06] MEDS ORDERED: ONDA8TAB13 PO (12:04)
[2018-11-06] MEDS ORDERED: PANT40TA3 PO (12:04)
--- NOTE | 2018-11-08 14:03 | Physician Query-Final Dx ---
Final Diagnosis Give Final Diagnosis Please give Final Diagnosis PARVEZ BREWER November 08, 2018 14:02
== END 2018-11-05 14:45 | disposition home or self-care (01) ==
LOC: EDUNIT# 18:03 → ER 18:05 → 4TH 18:52
PROVIDERS: ADMIT Internal Medicine; ATTEND Internal Medicine
DX: R11.2 Nausea with vomiting, unspecified (principal); R19.7 Diarrhea, unspecified; K21.9 Gastro-esophageal reflux disease without esophagitis; K27.9 Peptic ulcer, site unspecified, unspecified as acute or chronic, without hemorrhage or perforation
CPT/HCPCS: 36415; 74177; 80048; 80053; 81000; 83690; 84703; 85007; 85025; 85027; 85652; 86141; 87088; 96374; 96375

== ENCOUNTER 2018-11-06 12:00 | Outpatient (CLI) | payer BC ==
[~2018-11-06] VITALS: Ht 160 cm; Wt 82.2 kg
[2018-11-06] MEDS ORDERED: PANT40TA3 PO (12:04)
[2018-11-06] MEDS ORDERED: ONDA8TAB13 PO (12:04)
[2018-11-06] MEDS ORDERED: CETI10TA20 PO (12:04)
== END 2018-11-06 12:10 | disposition home or self-care (01) ==
LOC: PREOP 12:00
PROVIDERS: ATTEND Pediatrics
DX: Z01.818 Encounter for other preprocedural examination (principal)

== ENCOUNTER 2018-11-07 06:48 | Day surgery (SDC) | payer BC ==
[~2018-11-07] VITALS: Ht 160 cm; Wt 82.2 kg
[~2018-11-07 06:48] MED LIST changes: +CETI10TA20 PO; +ONDA8TAB13 PO; +PANT40TA3 PO
[2018-11-07] MEDS ORDERED: NS IV 500 ML 500 ML ONE (06:53)
[2018-11-07] MEDS ORDERED: MIDAZOLAM 2 MG/2 ML (VERSED) VIAL ONE ×4 (07:16→07:17)
[2018-11-07] MEDS ORDERED: fentaNYL INJECTION 100 MCG/2 ML AMP ONE (07:17)
[2018-11-07] MEDS ORDERED: NS IV 500 ML 500 ML IV PRN (07:24)
[2018-11-07 07:28] VITALS: BP 123/87
[2018-11-07] MEDS ORDERED: fentaNYL INJECTION 100 MCG/2 ML AMP IVP ONE (07:30)
[2018-11-07] MEDS ORDERED: MIDAZOLAM 2 MG/2 ML (VERSED) VIAL IVP ONE (07:30)
--- NOTE | 2018-11-07 08:05 | Progress Note-Pre Operative ---
Pre-Operative Progress Note H&P Reviewed The H&P was reviewed, patient examined and no changes noted. Date Seen by Provider: November 07, 2018 Time Seen by Provider: 08:05 Date H&P Reviewed: November 07, 2018 Time H&P Reviewed: 08:05 Pre-Operative Diagnosis: KAREEM Cruz MD November 07, 2018 08:05
--- NOTE | 2018-11-07 08:27 | Endoscopy Procedure Report ---
Colonoscopy Procedure Performed: Colonoscopy Pre-Operative Diagnosis: colitis Post-Operative Diagnosis: colitis Commercial Representative: None. Indications for Procedure: signs ofcolitis by CT Procedure Details: Informed consent was obtained, the risks, benefits and alternatives to the procedure were explained to the patient. The Halle Pandya, a 33 yr old female, was brought to to surgery area, sedated with 8 mg of Versed and 100 ug of fentanyl. She was placed in the left lateral decubitus position. Under direct visualization the scope was passed easily to the cecum. Cecum is identified by landmarks. ileocecal valve cannulated and terminal ileum biopsied with mild inflammation.Scope was carefully withdrawn. Findings: Ascending Colon: mild inflammatory changes Transverse Colon: none Descending/Sigmoid: mild inflammatory changes Rectum: none Estimated Blood Loss: 0mL Specimens: ileum and biopsies of ascending,transvers and sigomid colon Complications: None; patient tolerated the procedure well. Final Diagnosis: colitis KAREEM PARRISH MD November 07, 2018 08:27
[2018-11-07 08:30] VITALS: BP 122/73
[2018-11-07 09:20] VITALS: BP 118/82
[2018-11-07 09:39] VITALS: BP 118/82
== END 2018-11-07 09:40 | disposition home or self-care (01) ==
LOC: ENDO 06:48
PROVIDERS: ATTEND Pediatrics
DX: K52.9 Noninfective gastroenteritis and colitis, unspecified (principal)

== ENCOUNTER 2018-11-11 21:51 | Emergency (ER) | payer BC ==
[~2018-11-11] VITALS: Ht 160 cm; Wt 77.1 kg
[2018-11-11] MEDS ORDERED: RX-HYOSCYAMINE 0.125 MG SL (LEVSIN) PPK#6 SL STA (22:35)
[2018-11-11] MEDS ORDERED: HYOSCYAMINE 0.125 MG (LEVSIN) TAB SL ONE (22:45)
--- NOTE | 2018-11-11 23:06 | ED GI ---
General Chief Complaint: Abdominal/GI Problems Stated Complaint: ABD PAIN Nursing Triage Note: PT PRESENTS TO ED WITH ABD PAIN. PAIN STARTED IN RLQ THIS AM AND MOVED TO RUQ. PT REPORTS PAIN SQUEEZING PAIN. PT REPORTS DIARRHEA. PT WAS HOSITPALIZED RECENTLY FOR ABD PAIN AND HAD COLONOSCOPY. Sepsis Screen: No Definite Risk Source of Information: Patient Exam Limitations: No Limitations History of Present Illness Date Seen by Provider: November 11, 2018 Time Seen by Provider: 22:29 Initial Comments Here with report of a viral abdominal pain that started this morning. She notes that it's moving on the right side of down. Reports the pain as squeezing cramping. Also has diarrhea. Has had multiple workups since October [address] and colonoscopy with biopsies. All of this is been negative. She has had mildly elevated white count of unknown significance. She is tolerating fluids little bit. She does have Zofran at home but has not tried that today. She does have appointment with Dr. Barnes tomorrow. Denies blood in her stools. Biopsies are negative and stool culture is negative. UA recently shows contaminated culture. Does report that while she was in the hospital she did get sublingual Levsin and that seemed to help. She does not have that at home. Timing/Duration: 12 Hours Severity/Quality: Moderate, Cramping Location: RUQ Radiation: RLQ Activities at Onset: None Modifying Factors: Worsens With Eating; Improves With Resting Associated Symptoms: No Back Pain, No Chest Pain, No Fever/Chills; Nausea/Vomiting; No Shortness of Air, No Weakness Allergies and Home Medications Allergies Coded Allergies: Penicillins (Verified Allergy, Unknown, 11/11/18) acetaminophen (Verified Allergy, Unknown, 11/11/18) oxycodone (Verified Allergy, Unknown, 11/11/18) Home Medications Cetirizine HCl 10 Mg Tablet, 10 MG PO DAILY, (Reported) Ondansetron 8 Mg Tab.rapdis, 8 MG PO PRN, (Reported) Pantoprazole Sodium 40 Mg Tablet.dr, 40 MG PO DAILY, (Reported) Patient Home Medication List Home Medication List Reviewed: Yes Review of Systems Review of Systems Constitutional: see HPI; No chills, No fever EENTM: No Symptoms Reported Respiratory: No Symptoms Reported Cardiovascular: No Symptoms Reported Gastrointestinal: See HPI, Diarrhea, Nausea, Vomiting Psychiatric/Neurological: No Symptoms Reported Past Tynawfc-Zeephd-Atbejh Hx Past Med/Social Hx: Reviewed Nursing Past Med/Soc Hx Patient Social History Alcohol Use: Denies Use Recreational Drug Use: No Smoking Status: Never a Smoker 2nd Hand Smoke Exposure: No Recent Foreign Travel: No Contact w/Someone Who Travel: No Recent Infectious Disease Expo: No Recent Hopitalizations: Yes (11/06 ABD PAIN, COLONOSCOPY) Physical Abuse: No Sexual Abuse: No Seasonal Allergies Seasonal Allergies: No Past Medical History Surgeries: Yes Gallbladder, Tonsillectomy, Tubal Ligation Respiratory: No Currently Using CPAP: No Currently Using BIPAP: No Cardiac: No Neurological: No (Raynaud's disease) 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: Tubal 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 Genitourinary: Yes Kidney Stones Gastrointestinal: Yes (newly dx with Crohns ) Colitis, Gastroesophageal Reflux, Crohns Disease, Irritable Bowel Musculoskeletal: No Endocrine: No HEENT: No Cancer: No Psychosocial: No Integumentary: No Blood Disorders: No Adverse Reaction/Blood Tranf: No Family Medical History Reviewed Nursing Family Hx Arthritis 19 MOTHER Cataracts maternal grandmother Dementia paternal grandmother Diabetes mellitus 19 FATHER (pre-diabetic) FH: aortic aneurysm 19 FATHER paternal grandfather FH: skin cancer 19 FATHER Gout 19 FATHER Hypertension 19 FATHER Irritable bowel syndrome G8 SISTER Kidney stone G8 SISTER Miscarriage 19 MOTHER Physical Exam Vital Signs Vital Signs - First Documented 11/11/18 22:17 Temp 98.0 Pulse 87 Resp 16 B/P (MAP) 140/92 (108) Pulse Ox 98 Capillary Refill : Less Than 3 Seconds Height/Weight/BMI Height: 5'3.00" Weight: 170lbs. 3.2oz. 77.763931bo; 32.1 BMI Method:Stated General Appearance: WD/WN, no apparent distress Neck: full range of motion, supple Respiratory: lungs clear, normal breath sounds Cardiovascular: regular rate, rhythm, no murmur Gastrointestinal: soft, abnormal bowel sounds (hyperactive), tenderness (right sided) Extremities: non-tender, normal inspection Back: normal inspection, no CVA tenderness, no vertebral tenderness Neurologic/Psychiatric: alert, oriented x 3 Skin: normal color, warm/dry Progress/Results/Core Measures Results/Orders My Orders Orders - CASSIDY CARMONA MD Hyoscyamine Sl Tablet (Levsin Sl Tablet) (11/11/18 22:45) Rx-Hyoscyamine Tab (Rx-Levsin Sl) (11/11/18 22:35) Medications Given in ED Current Medications Medications Dose Ordered Sig/Darell Route Start Time Stop Time Status Last Admin Dose Admin Hyoscyamine Sulfate 0.125 mg ONCE ONCE SL 11/11/18 22:45 11/11/18 22:46 DC 11/11/18 22:38 0.125 MG Vital Signs/I&O 11/11/18 22:17 Temp 98.0 Pulse 87 Resp 16 B/P (MAP) 140/92 (108) Pulse Ox 98 Blood Pressure Mean: 108 Progress Progress Note : Progress Note Seen and evaluated. I did discuss with the patient multiple options including rechecking labs. I'm hesitant to redo CT scan as she has had 2 in the last 2 weeks. She is also had recent colonoscopy. The findings seem consistent with irritable bowel type symptoms given the negative workups although she has not been diagnosed with this. She did state that the labs seem to help and wanted to try that first to see and benefit didn't help and we pursue labs. 2305: States the pain is actually tolerable now and we will give her a go pack of Levsin. She will follow-up with Dr. Barnes in the morning. Discharged home with return precautions. Patient verbalize understanding instructions and agreement with plan. Departure Impression Primary Impression: Right sided abdominal pain Disposition: 01 HOME, SELF-CARE Condition: Improved Departure-Patient Inst. Decision time for Depature: 23:07 Referrals: KAREEM BARNES MD (PCP/Family) Primary Care Physician Patient Instructions: Acute Abdomen (Belly Pain), Adult (DC), Irritable Bowel Syndrome (DC) Add. Discharge Instructions: All discharge instructions reviewed with patient and/or family. Voiced understanding. Take medications as directed. Keep appointment with Dr. Barnes tomorrow. Clear liquid or light diet and advance as tolerated. Return for worsening, fever, vomiting, weakness, breathing problems or other concerns as needed. Copy Copies To 1: KAREEM BARNES MD, TIMOTHY D MD November 11, 2018 23:06
[2018-11-11 23:13] VITALS: BP 140/92
== END 2018-11-11 23:13 | disposition home or self-care (01) ==
LOC: EDUNIT# 21:51 → ER 21:52
DX: R10.31 Right lower quadrant pain (principal); R10.11 Right upper quadrant pain; I73.00 Raynaud's syndrome without gangrene; K21.9 Gastro-esophageal reflux disease without esophagitis; K58.9 Irritable bowel syndrome, unspecified; Z87.19 Personal history of other diseases of the digestive system; Z87.442 Personal history of urinary calculi; Z80.8 Family history of malignant neoplasm of other organs or systems; Z88.0 Allergy status to penicillin; Z88.5 Allergy status to narcotic agent; Z88.8 Allergy status to other drugs, medicaments and biological substances; Z98.51 Tubal ligation status; Z90.89 Acquired absence of other organs
CPT/HCPCS: 99283

== ENCOUNTER → 2018-11-22 | Outpatient (CLI) | payer BC | LOC: LAB 12:15 | PROVIDERS: ATTEND Pediatrics | DX: T78.40XA Allergy, unspecified, initial encounter (principal) | CPT/HCPCS: 36415 ==

== ENCOUNTER 2018-12-01 19:37 | Emergency (ER) | payer BC ==
[~2018-12-01] VITALS: Ht 160 cm; Wt 74.8 kg
--- OUTSIDE RECORDS SUMMARY | 2018-12-01 19:43 | XMS REPORT | Continuity of Care Document ---
Author Organization Unknown Address Unknown Allergies Active Description Code Type Severity Reaction Onset Reported/Identified Relationship to Patient Clinical Status Yes acetaminophen [id number] Drug Allergy Unknown N/A 11/11/2018 Yes oxycodone [id number] Drug Allergy Unknown N/A 11/11/2018 Yes Penicillins [id number] Drug Allergy Unknown N/A 11/11/2018 Medications There is no data. Problems Date Dx Coded Attending Type Code Diagnosis Diagnosed By 10/30/2018 MYRIAM ALVARADO APRN Ot K58.9 IRRITABLE BOWEL SYNDROME WITHOUT DIARRHE 10/30/2018 MYRIAM ALVARADO APRN Ot K63.89 OTHER SPECIFIED DISEASES OF INTESTINE 10/30/2018 MYRIAM ALVARADO APRN Ot R10.31 RIGHT LOWER QUADRANT PAIN 10/30/2018 MYRIAM ALVARADO APRN Ot R10.33 PERIUMBILICAL PAIN 10/30/2018 MYRIAM ALVARADO APRN Ot Z88.0 ALLERGY STATUS TO PENICILLIN 10/30/2018 MYRIAM ALVARADO APRN Ot Z88.5 ALLERGY STATUS TO NARCOTIC AGENT STATUS 10/30/2018 MYRIAM ALVARADO APRN Ot Z88.6 ALLERGY STATUS TO ANALGESIC AGENT STATUS 10/30/2018 MYRIAM ALVARADO APRN Ot Z90.89 ACQUIRED ABSENCE OF OTHER ORGANS 10/30/2018 MYRIAM ALVARADO APRN Ot Z98.51 TUBAL LIGATION STATUS 11/01/2018 MYRIAM ALVARADO APRN Ot K58.9 IRRITABLE BOWEL SYNDROME WITHOUT DIARRHE 11/01/2018 MYRIAM ALVARADO APRN Ot K63.89 OTHER SPECIFIED DISEASES OF INTESTINE 11/01/2018 MYRIAM ALVARADO HUMAN RELATIONS PROFESSOR Ot R10.31 RIGHT LOWER QUADRANT PAIN 11/01/2018 MYRIAM ALVARADO APRN Ot R10.33 PERIUMBILICAL PAIN 11/01/2018 MYRIAM ALVARADO APRN Ot Z88.0 ALLERGY STATUS TO PENICILLIN 11/01/2018 MYRIAM ALVARADO APRN Ot Z88.5 ALLERGY STATUS TO NARCOTIC AGENT STATUS 11/01/2018 ALVARADOMYRIAM BAILON Johnny HUMAN RELATIONS PROFESSOR Ot Z88.6 ALLERGY STATUS TO ANALGESIC AGENT STATUS 11/01/2018 CHRISTIANO MYRIAM Turner HUMAN RELATIONS PROFESSOR Ot Z90.89 ACQUIRED ABSENCE OF OTHER ORGANS 11/01/2018 ALVARADO MYRIAM Turner HUMAN RELATIONS PROFESSOR Ot Z98.51 TUBAL LIGATION STATUS 11/04/2018 KAREEM PARRISH MD Ot K52.9 NONINFECTIVE GASTROENTERITIS AND COLITIS 11/05/2018 DARSHAN HENRIQUEZ MD Ot K21.9 GASTRO-ESOPHAGEAL REFLUX DISEASE WITHOUT 11/05/2018 DARSHAN HENRIQUEZ MD Ot K27.9 PEPTIC ULC, SITE UNSP, UNSP AC OR CHR 11/05/2018 DARSHAN HENRIQUEZ MD Ot R11.2 NAUSEA WITH VOMITING, UNSPECIFIED 11/05/2018 DARSHAN HENRIQUEZ MD Ot R19.7 DIARRHEA, UNSPECIFIED 11/05/2018 DARSHAN HENRIQUEZ MD Ot K21.9 GASTRO-ESOPHAGEAL REFLUX DISEASE WITHOUT 11/05/2018 DARSHAN HENRIQUEZ MD Ot K27.9 PEPTIC ULC, SITE UNSP, UNSP AC OR CHR 11/05/2018 DARSHAN HENRIQUEZ MD Ot R11.2 NAUSEA WITH VOMITING, UNSPECIFIED 11/05/2018 DARSHAN HENRIQUEZ MD Ot R19.7 DIARRHEA, UNSPECIFIED 11/06/2018 KAREEM PARRISH MD Ot Z01.818 ENCOUNTER FOR OTHER PREPROCEDURAL EXAMIN 11/06/2018 KAREEM PARRISH MD Ot Z01.818 ENCOUNTER FOR OTHER PREPROCEDURAL EXAMIN 11/06/2018 KAREEM PARRISH MD Ot Z01.818 ENCOUNTER FOR OTHER PREPROCEDURAL EXAMIN 11/06/2018 KAREEM PARRISH MD Ot Z01.818 ENCOUNTER FOR OTHER PREPROCEDURAL EXAMIN 11/06/2018 KAREEM PARRISH MD Ot Z01.818 ENCOUNTER FOR OTHER PREPROCEDURAL EXAMIN 11/07/2018 KAREEM PARRISH MD Ot Z01.818 ENCOUNTER FOR OTHER PREPROCEDURAL EXAMIN 11/07/2018 KAREEM PARRISH MD Ot K52.9 NONINFECTIVE GASTROENTERITIS AND COLITIS 11/11/2018 CASSIDY CARMONA MD Ot I73.00 RAYNAUD'S SYNDROME WITHOUT GANGRENE 11/11/2018 CASSIDY CARMONA MD, Ot K21.9 GASTRO-ESOPHAGEAL REFLUX DISEASE WITHOUT 11/11/2018 CASSIDY CARMONA MD, Ot K58.9 IRRITABLE BOWEL SYNDROME WITHOUT DIARRHE 11/11/2018 CASSIDY ACRMONA MD, Ot R10.11 RIGHT UPPER QUADRANT PAIN 11/11/2018 CASSIDY CARMONA MD, Ot R10.31 RIGHT LOWER QUADRANT PAIN 11/11/2018 CASSIDY CARMONA MD, Ot Z80.8 FAMILY HISTORY OF MALIGNANT NEOPLASM OF 11/11/2018 CASSIDY CARMONA MD, Ot Z87.19 PERSONAL HISTORY OF OTHER DISEASES OF TH 11/11/2018 CASSIDY CARMONA MD, Ot Z87.442 PERSONAL HISTORY OF URINARY CALCULI 11/11/2018 CASSIDY CARMONA MD, Ot Z88.0 ALLERGY STATUS TO PENICILLIN 11/11/2018 CASSIDY CARMONA MD, Ot Z88.5 ALLERGY STATUS TO NARCOTIC AGENT STATUS 11/11/2018 CASSIDY CARMONA MD, Ot Z88.8 ALLERGY STATUS TO OTH DRUG/MEDS/BIOL SUB 11/11/2018 CASSIDY CARMONA MD Ot Z90.89 ACQUIRED ABSENCE OF OTHER ORGANS 11/11/2018 CASSIDY CARMONA MD Ot Z98.51 TUBAL LIGATION STATUS 11/12/2018 DARSHAN HENRIQUEZ MD Ot K21.9 GASTRO-ESOPHAGEAL REFLUX DISEASE WITHOUT 11/12/2018 DARSHAN HENRIQUEZ MD Ot K27.9 PEPTIC ULC, SITE UNSP, UNSP AC OR CHR 11/12/2018 DARSHAN HENRIQUEZ MD Ot R11.2 NAUSEA WITH VOMITING, UNSPECIFIED 11/12/2018 DARSHAN HENRIQUEZ MD Ot R19.7 DIARRHEA, UNSPECIFIED 11/12/2018 DARSHAN HENRIQUEZ MD Ot K21.9 GASTRO-ESOPHAGEAL REFLUX DISEASE WITHOUT 11/12/2018 DARSHAN HENRIQUEZ MD Ot K27.9 PEPTIC ULC, SITE UNSP, UNSP AC OR CHR 11/12/2018 DARSHAN HENRIQUEZ MD Ot R11.2 NAUSEA WITH VOMITING, UNSPECIFIED 11/12/2018 DARSHAN HENRIQUEZ MD Ot R19.7 DIARRHEA, UNSPECIFIED 11/12/2018 KAREEM PARRISH MD Ot K52.9 NONINFECTIVE GASTROENTERITIS AND COLITIS 11/13/2018 CASSIDY CARMONA MD, Ot I73.00 RAYNAUD'S SYNDROME WITHOUT GANGRENE 11/13/2018 CASSIDY CARMONA MD, Ot K21.9 GASTRO-ESOPHAGEAL REFLUX DISEASE WITHOUT 11/13/2018 CASSIDY CARMONA MD, Ot K58.9 IRRITABLE BOWEL SYNDROME WITHOUT DIARRHE 11/13/2018 CASSIDY CARMONA MD, Ot R10.11 RIGHT UPPER QUADRANT PAIN 11/13/2018 CASSIDY CARMONA MD, Ot R10.31 RIGHT LOWER QUADRANT PAIN 11/13/2018 CASSIDY CARMONA MD, Ot Z80.8 FAMILY HISTORY OF MALIGNANT NEOPLASM OF 11/13/2018 CASSIDY CARMONA MD, Ot Z87.19 PERSONAL HISTORY OF OTHER DISEASES OF TH 11/13/2018 CASSIDY CARMONA MD, Ot Z87.442 PERSONAL HISTORY OF URINARY CALCULI 11/13/2018 CASSIDY CARMONA MD, Ot Z88.0 ALLERGY STATUS TO PENICILLIN 11/13/2018 CASSIDY CARMONA MD, Ot Z88.5 ALLERGY STATUS TO NARCOTIC AGENT STATUS 11/13/2018 CASSIDY CARMONA MD, Ot Z88.8 ALLERGY STATUS TO OTH DRUG/MEDS/BIOL SUB 11/13/2018 CASSIDY CARMONA MD, Ot Z90.89 ACQUIRED ABSENCE OF OTHER ORGANS 11/13/2018 CASSIDY CARMONA MD, Ot Z98.51 TUBAL LIGATION STATUS Procedures There is no data. Results Test Result Range Complete blood count (CBC) with automated white blood cell (WBC) differential - 10/30/18 13:39 Blood leukocytes automated count (number/volume) 11.7 10*3/uL 4.3-11.0 Blood erythrocytes automated count (number/volume) 4.66 10*6/uL 4.35-5.85 Venous blood hemoglobin measurement (mass/volume) 13.6 g/dL 11.5-16.0 Blood hematocrit (volume fraction) 40 % 35-52 Automated erythrocyte mean corpuscular volume 86 [foz_us] 80-99 Automated erythrocyte mean corpuscular hemoglobin (mass per erythrocyte) 29 pg 25-34 Automated erythrocyte mean corpuscular hemoglobin concentration measurement (mass/volume) 34 g/dL 32-36 Automated erythrocyte distribution width ratio 13.6 % 10.0- 14.5 Automated blood platelet count (count/volume) 408 10*3/uL 130-400 Automated blood platelet mean volume measurement 10.1 [foz_us] 7.4-10.4 Automated blood neutrophils/100 leukocytes 59 % 42-75 Automated blood lymphocytes/100 leukocytes 31 % 12-44 Blood monocytes/100 leukocytes 9 % 0-12 Automated blood eosinophils/100 leukocytes 2 % 0-10 Automated blood basophils/100 leukocytes 0 % 0-10 Blood neutrophils automated count (number/volume) 6.9 10*3 1.8-7.8 Blood lymphocytes automated count (number/volume) 3.6 10*3 1.0-4.0 Blood monocytes automated count (number/volume) 1.0 10*3 0.0- 1.0 Automated eosinophil count 0.2 10*3/uL 0.0-0.3 Automated blood basophil count (count/volume) 0.0 10*3/uL 0.0-0.1 Comprehensive metabolic panel - 10/30/18 13:39 Serum or plasma sodium measurement (moles/volume) 140 mmol/L 135-145 Serum or plasma potassium measurement (moles/volume) 3.6 mmol/L 3.6-5.0 Serum or plasma chloride measurement (moles/volume) 105 mmol/L 98-107 Carbon dioxide 27 mmol/L 21-32 Serum or plasma anion gap determination (moles/volume) 8 mmol/L 5-14 Serum or plasma urea nitrogen measurement (mass/volume) 10 mg/dL 7-18 Serum or plasma creatinine measurement (mass/volume) 0.83 mg/dL 0.60-1.30 Serum or plasma urea nitrogen/creatinine mass ratio 12 NRG Serum or plasma creatinine measurement with calculation of estimated glomerular filtration rate > NRG Serum or plasma glucose measurement (mass/volume) 87 mg/dL 70-105 Serum or plasma calcium measurement (mass/volume) 10.0 mg/dL 8.5-10.1 Serum or plasma total bilirubin measurement (mass/volume) 0.4 mg/dL 0.1-1.0 Serum or plasma alkaline phosphatase measurement (enzymatic activity/volume) 76 U/L 40-136 Serum or plasma aspartate aminotransferase measurement (enzymatic activity/volume) 15 U/L 5-34 Serum or plasma alanine aminotransferase measurement (enzymatic activity/volume) 13 U/L 0-55 Serum or plasma protein measurement (mass/volume) 8.1 g/dL 6.4-8.2 Serum or plasma albumin measurement (mass/volume) 4.5 g/dL 3.2-4.5 CALCIUM CORRECTED 9.6 mg/dL 8.5-10.1 Complete urinalysis with reflex to culture - 10/30/18 14:03 Urine color determination YELLOW NRG Urine clarity determination SLIGHTLY CLOUDY NRG Urine pH measurement by test strip 6.5 5-9 Specific gravity of urine by test strip 1.010 1.016-1.022 Urine protein assay by test strip, semi-quantitative NEGATIVE NEGATIVE Urine glucose detection by automated test strip NEGATIVE NEGATIVE Erythrocytes detection in urine sediment by light microscopy NEGATIVE NEGATIVE Urine ketones detection by automated test strip NEGATIVE NEGATIVE Urine nitrite detection by test strip NEGATIVE NEGATIVE Urine total bilirubin detection by test strip NEGATIVE NEGATIVE Urine urobilinogen measurement by automated test strip (mass/volume) NORMAL NORMAL Urine leukocyte esterase detection by dipstick NEGATIVE NEGATIVE Automated urine sediment erythrocyte count by microscopy (number/high power field) NONE NRG Automated urine sediment leukocyte count by microscopy (number/high power field) [HPF] NRG Bacteria detection in urine sediment by light microscopy TRACE NRG Squamous epithelial cells detection in urine sediment by light microscopy 2-5 NRG Crystals detection in urine sediment by light microscopy NONE NRG Casts detection in urine sediment by light microscopy NONE NRG Mucus detection in urine sediment by light microscopy NEGATIVE NRG Complete urinalysis with reflex to culture NO NRG Stool bacteria identification by culture - 11/01/18 08:53 QUANTITY OF GROWTH . NRG Stool bacteria identification by culture SEE REPORT NRG Complete blood count (CBC) with automated white blood cell (WBC) differential - 11/04/18 18:13 Blood leukocytes automated count (number/volume) 15.1 10*3/uL 4.3-11.0 Blood erythrocytes automated count (number/volume) 5.08 10*6/uL 4.35-5.85 Venous blood hemoglobin measurement (mass/volume) 14.7 g/dL 11.5-16.0 Blood hematocrit (volume fraction) 43 % 35-52 Automated erythrocyte mean corpuscular volume 85 [foz_us] 80-99 Automated erythrocyte mean corpuscular hemoglobin (mass per erythrocyte) 29 pg 25-34 Automated erythrocyte mean corpuscular hemoglobin concentration measurement (mass/volume) 34 g/dL 32-36 Automated erythrocyte distribution width ratio 13.5 % 10.0- 14.5 Automated blood platelet count (count/volume) 437 10*3/uL 130-400 Automated blood platelet mean volume measurement 9.8 [foz_us] 7.4-10.4 Automated blood neutrophils/100 leukocytes 67 % 42-75 Automated blood lymphocytes/100 leukocytes 24 % 12-44 Blood monocytes/100 leukocytes 8 % 0-12 Automated blood eosinophils/100 leukocytes 1 % 0-10 Automated blood basophils/100 leukocytes 0 % 0-10 Blood neutrophils automated count (number/volume) 10.1 10*3 1.8-7.8 Blood lymphocytes automated count (number/volume) 3.7 10*3 1.0-4.0 Blood monocytes automated count (number/volume) 1.2 10*3 0.0- 1.0 Automated eosinophil count 0.1 10*3/uL 0.0-0.3 Automated blood basophil count (count/volume) 0.1 10*3/uL 0.0-0.1 Serum or plasma choriogonadotropin ( test) detection - 11/04/18 18:13 Serum or plasma choriogonadotropin ( test) detection NEGATIVE NEGATIVE Comprehensive metabolic panel - 11/04/18 18:13 Serum or plasma sodium measurement (moles/volume) 140 mmol/L 135-145 Serum or plasma potassium measurement (moles/volume) 3.9 mmol/L 3.6-5.0 Serum or plasma chloride measurement (moles/volume) 105 mmol/L 98-107 Carbon dioxide 20 mmol/L 21-32 Serum or plasma anion gap determination (moles/volume) 15 mmol/L 5-14 Serum or plasma urea nitrogen measurement (mass/volume) 6 mg/dL 7-18 Serum or plasma creatinine measurement (mass/volume) 0.87 mg/dL 0.60-1.30 Serum or plasma urea nitrogen/creatinine mass ratio 7 NRG Serum or plasma creatinine measurement with calculation of estimated glomerular filtration rate > NRG Serum or plasma glucose measurement (mass/volume) 99 mg/dL 70-105 Serum or plasma calcium measurement (mass/volume) 10.2 mg/dL 8.5-10.1 Serum or plasma total bilirubin measurement (mass/volume) 0.4 mg/dL 0.1-1.0 Serum or plasma alkaline phosphatase measurement (enzymatic activity/volume) 88 U/L 40-136 Serum or plasma aspartate aminotransferase measurement (enzymatic activity/volume) 19 U/L 5-34 Serum or plasma alanine aminotransferase measurement (enzymatic activity/volume) 19 U/L 0-55 Serum or plasma protein measurement (mass/volume) 8.4 g/dL 6.4-8.2 Serum or plasma albumin measurement (mass/volume) 4.6 g/dL 3.2-4.5 Lipase - 11/04/18 18:13 Lipase 7 U/L 8-78 Blood manual differential performed detection - 11/04/18 18:13 Blood monocytes/100 leukocytes 6 % NRG Manual blood segmented neutrophils/100 leukocytes 70 % NRG Blood band neutrophils/100 leukocytes 0 % NRG Manual blood lymphocytes/100 leukocytes 22 % NRG Manual eosinophils/100 leukocytes in nose 2 % NRG Manual blood basophils/100 leukocytes 0 % NRG Blood erythrocyte morphology finding identification NORMAL NRG Erythrocyte sedimentation rate by westergren method - 11/04/18 18:13 Erythrocyte sedimentation rate by westergren method 14 mm 0-20 Serum or plasma C reactive protein measurement (mass/volume) - 11/04/18 18:13 Serum or plasma C reactive protein measurement (mass/volume) 0.20 mg/dL 0.00-0.50 Complete urinalysis with reflex to culture - 11/04/18 18:21 Urine color determination YELLOW NRG Urine clarity determination VERY CLOUDY NRG Urine pH measurement by test strip 6 5-9 Specific gravity of urine by test strip 1.025 1.016-1.022 Urine protein assay by test strip, semi-quantitative 1+ NEGATIVE Urine glucose detection by automated test strip NEGATIVE NEGATIVE Erythrocytes detection in urine sediment by light microscopy 2+ NEGATIVE Urine ketones detection by automated test strip NEGATIVE NEGATIVE Urine nitrite detection by test strip NEGATIVE NEGATIVE Urine total bilirubin detection by test strip NEGATIVE NEGATIVE Urine urobilinogen measurement by automated test strip (mass/volume) NORMAL NORMAL Urine leukocyte esterase detection by dipstick 2+ NEGATIVE Automated urine sediment erythrocyte count by microscopy (number/high power field) [HPF] NRG Automated urine sediment leukocyte count by microscopy (number/high power field) [HPF] NRG Bacteria detection in urine sediment by light microscopy MODERATE NRG Squamous epithelial cells detection in urine sediment by light microscopy 10-25 NRG Crystals detection in urine sediment by light microscopy NONE NRG Casts detection in urine sediment by light microscopy NONE NRG Mucus detection in urine sediment by light microscopy SMALL NRG Complete urinalysis with reflex to culture YES NRG Yeast detection in urine sediment by light microscopy FEW NRG Bacterial urine culture - 11/04/18 18:21 Bacterial urine culture SEE REPORT NRG COLONY COUNT . NRG Complete blood count (CBC) with automated white blood cell (WBC) differential - 11/05/18 05:40 Blood leukocytes automated count (number/volume) 6.8 10*3/uL 4.3-11.0 Blood erythrocytes automated count (number/volume) 3.70 10*6/uL 4.35-5.85 Venous blood hemoglobin measurement (mass/volume) 10.7 g/dL 11.5-16.0 Blood hematocrit (volume fraction) 33 % 35-52 Automated erythrocyte mean corpuscular volume 89 [foz_us] 80-99 Automated erythrocyte mean corpuscular hemoglobin (mass per erythrocyte) 29 pg 25-34 Automated erythrocyte mean corpuscular hemoglobin concentration measurement (mass/volume) 32 g/dL 32-36 Automated erythrocyte distribution width ratio 13.9 % 10.0- 14.5 Automated blood platelet count (count/volume) 298 10*3/uL 130-400 Automated blood platelet mean volume measurement 10.5 [foz_us] 7.4-10.4 Automated blood neutrophils/100 leukocytes 39 % 42-75 Automated blood lymphocytes/100 leukocytes 49 % 12-44 Blood monocytes/100 leukocytes 8 % 0-12 Automated blood eosinophils/100 leukocytes 4 % 0-10 Automated blood basophils/100 leukocytes 0 % 0-10 Blood neutrophils automated count (number/volume) 2.7 10*3 1.8-7.8 Blood lymphocytes automated count (number/volume) 3.3 10*3 1.0-4.0 Blood monocytes automated count (number/volume) 0.5 10*3 0.0- 1.0 Automated eosinophil count 0.3 10*3/uL 0.0-0.3 Automated blood basophil count (count/volume) 0.0 10*3/uL 0.0-0.1 Whole blood basic metabolic panel - 11/05/18 05:40 Serum or plasma sodium measurement (moles/volume) 136 mmol/L 135-145 Serum or plasma potassium measurement (moles/volume) 4.0 mmol/L 3.6-5.0 Serum or plasma chloride measurement (moles/volume) 103 mmol/L 98-107 Carbon dioxide 19 mmol/L 21-32 Serum or plasma anion gap determination (moles/volume) 14 mmol/L 5-14 Serum or plasma urea nitrogen measurement (mass/volume) 49 mg/dL 7-18 Serum or plasma creatinine measurement (mass/volume) 2.03 mg/dL 0.60-1.30 Serum or plasma urea nitrogen/creatinine mass ratio 24 NRG Serum or plasma creatinine measurement with calculation of estimated glomerular filtration rate 28 NRG Serum or plasma glucose measurement (mass/volume) 122 mg/dL 70-105 Serum or plasma calcium measurement (mass/volume) 9.9 mg/dL 8.5-10.1 Complete blood count (CBC) with automated white blood cell (WBC) differential - 11/05/18 06:45 Blood leukocytes automated count (number/volume) 15.6 10*3/uL 4.3-11.0 Blood erythrocytes automated count (number/volume) 4.39 10*6/uL 4.35-5.85 Venous blood hemoglobin measurement (mass/volume) 12.8 g/dL 11.5-16.0 Blood hematocrit (volume fraction) 38 % 35-52 Automated erythrocyte mean corpuscular volume 86 [foz_us] 80-99 Automated erythrocyte mean corpuscular hemoglobin (mass per erythrocyte) 29 pg 25-34 Automated erythrocyte mean corpuscular hemoglobin concentration measurement (mass/volume) 34 g/dL 32-36 Automated erythrocyte distribution width ratio 13.1 % 10.0- 14.5 Automated blood platelet count (count/volume) 382 10*3/uL 130-400 Automated blood platelet mean volume measurement 9.7 [foz_us] 7.4-10.4 Automated blood neutrophils/100 leukocytes 91 % 42-75 Automated blood lymphocytes/100 leukocytes 8 % 12-44 Blood monocytes/100 leukocytes 1 % 0-12 Automated blood eosinophils/100 leukocytes 0 % 0-10 Automated blood basophils/100 leukocytes 0 % 0-10 Blood neutrophils automated count (number/volume) 14.2 10*3 1.8-7.8 Blood lymphocytes automated count (number/volume) 1.2 10*3 1.0-4.0 Blood monocytes automated count (number/volume) 0.1 10*3 0.0- 1.0 Automated eosinophil count 0.0 10*3/uL 0.0-0.3 Automated blood basophil count (count/volume) 0.0 10*3/uL 0.0-0.1 Whole blood basic metabolic panel - 11/05/18 06:45 Serum or plasma sodium measurement (moles/volume) 138 mmol/L 135-145 Serum or plasma potassium measurement (moles/volume) 4.3 mmol/L 3.6-5.0 Serum or plasma chloride measurement (moles/volume) 110 mmol/L 98-107 Carbon dioxide 19 mmol/L 21-32 Serum or plasma anion gap determination (moles/volume) 9 mmol/L 5-14 Serum or plasma urea nitrogen measurement (mass/volume) 6 mg/dL 7-18 Serum or plasma creatinine measurement (mass/volume) 0.70 mg/dL 0.60-1.30 Serum or plasma urea nitrogen/creatinine mass ratio 9 NRG Serum or plasma creatinine measurement with calculation of estimated glomerular filtration rate > NRG Serum or plasma glucose measurement (mass/volume) 136 mg/dL 70-105 Serum or plasma calcium measurement (mass/volume) 8.9 mg/dL 8.5-10.1 Encounters ACCT No. Visit Date/Time Discharge Status Pt. Type Provider Facility Loc./Unit Complaint [id number] 11/21/2018 19:00:00 11/21/2018 23:59:59 CLS Outpatient [facility] [id number] 11/22/2018 12:15:00 11/22/2018 23:59:59 CLS Outpatient KAREEM PARRISH MD [facility] LAB [id number] 11/11/2018 21:52:00 11/11/2018 23:13:00 DIS Emergency CASSIDY CARMONA MD [facility] ER ABD PAIN [id number] 11/07/2018 06:48:00 11/07/2018 09:40:00 DIS Outpatient KAREEM PARRISH MD [facility] ENDO COLITIS [id number] 11/06/2018 12:00:00 11/06/2018 12:10:00 DIS Outpatient KAREEM PARRISH MD [facility] PREOP COLONOSCOPY [id number] 11/04/2018 20:35:00 11/05/2018 14:22:00 DIS Inpatient DARSHAN HENRIQUEZ MD [facility] 4TH INTRACTABLE N/V/D [id number] 11/01/2018 08:50:00 11/01/2018 23:59:59 CLS Outpatient KAREEM PARRISH MD [facility] LAB COLITIS [id number] 10/30/2018 13:26:00 10/30/2018 15:11:00 DIS Emergency MYRIAM ALVARADO APRN [facility] ER LOWER ABD PAIN
--- NOTE | 2018-12-01 19:46 | NUR ---
pt here with " ". pt alert gcs 15. pt holding right head with wet cloth and c/o h/a rating 10 before i said 0-10. pt has h/o same. 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 pt also c/o clear nasal drainage. pt also c/o nausea w/o vomiting and relates ongoind diarrhea x 4 weeks per . no sighns of dehydration noted. pt denies dyspnea and no acute sighns of dyspnea noted. done amy pt at 1950.
[2018-12-01] MEDS ORDERED: diphenhydrAMINE 50 MG/ML INJ (BENADRYL) IM ONE (20:00)
[2018-12-01] MEDS ORDERED: PROCHLORPERAZINE 10 MG/2ML INJ (COMPAZINE) IM ONE (20:00)
[2018-12-01] MEDS ORDERED: KETOROLAC 60 MG/2 ML VIAL IM ONE (20:00)
[2018-12-01] MEDS ORDERED: PROM25TA14 PO (21:10)
[2018-12-01] MEDS ORDERED: HYOS-6 PO (21:11)
--- NOTE | 2018-12-01 21:17 | NUR ---
pt remains alert gcs 15. remains in the room. pt still c/o h/a rating 6-7. still c/o nausea and no v/d noted in er visit thus far. denies dyspnea and no acute sighns of dyspnea noted. in talking with pt about d/c. bp machine is 126/81 ausc hr 68 reg ausc resp 16 normal recheck temp 98.3 p ox r/a is 99.
--- NOTE | 2018-12-01 21:20 | ED Headache ---
General Chief Complaint: Head/Cervical Problems Stated Complaint: MIGRAINE Nursing Sepsis Screen: No Definite Risk Source: patient Exam Limitations: no limitations History of Present Illness Date Seen by Provider: Dec 01, 2018 Time Seen by Provider: 19:50 Initial Comments 33 year old female who presents to the emergency room with complains of migraine that started this morning and has progressively became worse throughout the day. Reports associated nausea, vomiting, photophobia. Denies fevers. Severity/Quality: constant, pressure Location: global Prior Headaches/Recent Trauma: occasional headaches Associated Symptoms: nausea/vomiting Allergies and Home Medications Allergies Coded Allergies: Penicillins (Verified Allergy, Unknown, 11/11/18) acetaminophen (Verified Allergy, Unknown, 11/11/18) oxycodone (Verified Allergy, Unknown, 11/11/18) Home Medications Cetirizine HCl 10 Mg Tablet, 10 MG PO DAILY, (Reported) Ondansetron 8 Mg Tab.rapdis, 8 MG PO PRN, (Reported) Pantoprazole Sodium 40 Mg Tablet.dr, 40 MG PO DAILY, (Reported) Promethazine HCl 25 Mg Tablet, 25 MG PO Q6H PRN for NAUSEA/VOMITING, (Reported) Patient Home Medication List Home Medication List Reviewed: Yes Review of Systems Review of Systems Constitutional: see HPI; No chills, No fever Eyes: See HPI, Photophobia Gastrointestinal: see HPI, nausea Psychiatric/Neurological: See HPI, Headache Past Zkrcgih-Mqikrp-Gkrxng Hx Past Med/Social Hx: Reviewed Nursing Past Med/Soc Hx Patient Social History Alcohol Use: Denies Use Recreational Drug Use: No Smoking Status: Never a Smoker 2nd Hand Smoke Exposure: No Recent Foreign Travel: No Contact w/Someone Who Travel: No Recent Infectious Disease Expo: No Recent Hopitalizations: Yes (11/06 ABD PAIN, COLONOSCOPY) Physical Abuse: No Sexual Abuse: No Seasonal Allergies Seasonal Allergies: No Past Medical History Surgeries: Yes Gallbladder, Tonsillectomy, Tubal Ligation Respiratory: No Currently Using CPAP: No Currently Using BIPAP: No Cardiac: No Neurological: No (Raynaud's disease) [employer] History: Tubal Ligation Genitourinary: Yes Kidney Stones Gastrointestinal: Yes (newly dx with Crohns ) Colitis, Gastroesophageal Reflux, Crohns Disease, Irritable Bowel Musculoskeletal: No Endocrine: No HEENT: No Cancer: No Psychosocial: No Integumentary: No Blood Disorders: No Adverse Reaction/Blood Tranf: No Family Medical History Reviewed Nursing Family Hx Arthritis 19 MOTHER Cataracts maternal grandmother Dementia paternal grandmother Diabetes mellitus 19 FATHER (pre-diabetic) FH: aortic aneurysm 19 FATHER paternal grandfather FH: skin cancer 19 FATHER Gout 19 FATHER Hypertension 19 FATHER Irritable bowel syndrome G8 SISTER Kidney stone G8 SISTER Miscarriage 19 MOTHER Physical Exam Vital Signs Vital Signs - First Documented 12/01/18 19:46 Temp 96.0 Pulse 100 Resp 16 B/P (MAP) 128/106 (113) Pulse Ox 100 O2 Delivery Room Air Capillary Refill : Less Than 3 Seconds Height, Weight, BMI Height: 5'3.00" Weight: 165lbs. 3.2oz. [id number]; 32.1 BMI Method:Stated General Appearance: WD/WN, no apparent distress HEENT: PERRL/EOMI, normal ENT inspection, TMs normal, pharynx normal Neck: non-tender, full range of motion, supple, normal inspection Cardiovascular: normal peripheral pulses, regular rate, rhythm, no edema, no gallop, no JVD, no murmur Respiratory: chest non-tender, lungs clear, normal breath sounds, no respiratory distress, no accessory muscle use Gastrointestinal: normal bowel sounds, non tender, soft, no organomegaly, no pulsatile mass Psychiatric: alert, oriented x 3 Crainal Nerves: normal hearing, normal speech, PERRL Coordination/Gait: normal finger to nose, normal gait Skin: normal color, warm/dry Progress/Results/Core Measures Results/Orders My Orders Orders - SHAYLEEDESMOND Ketorolac Injection (Toradol Injection) (12/01/18 20:00) Diphenhydramine Injection (Benadryl Inje (12/01/18 20:00) Prochlorperazine Injection (Compazine In (12/01/18 20:00) Medications Given in ED Vital Signs/I&O 12/01/18 12/01/18 19:46 21:25 Temp 96.0 98.3 Pulse 100 68 Resp 16 16 B/P (MAP) 128/106 (113) 126/81 (96) Pulse Ox 100 99 O2 Delivery Room Air Room Air Blood Pressure Mean: 113 Progress Progress Note : Time: 21:19 Progress Note I have seen and evaluated the patient. she has had improvement of symptoms. She agrees with plan of care, plans for discharge, return precautions were given. Departure Impression Primary Impression: Migraine Disposition: 01 HOME, SELF-CARE Condition: Stable/Unchanged Departure-Patient Inst. Decision time for Depature: 21:19 Referrals: KAREEM PARRISH MD (PCP/Family) Primary Care Physician Patient Instructions: Migraine Headache (DC) Add. Discharge Instructions: You may continue to use ibuprofen Tylenol and Benadryl as directed by the bottle for migraine relief. Follow-up with your primary care provider within 1 week for recheck. Return back to the emergency room for worsening symptoms or concerns as needed. All discharge instructions reviewed with patient and/or family. Voiced understanding. DESMOND JUNE Dec 01, 2018 21:20
[2018-12-01 21:25] VITALS: BP 126/81
--- NOTE | 2018-12-01 21:25 | NUR ---
d/c instructions to pt. told to read all papers. no scripts given. pt left in w/c with . i took pt to the car. . pt knows f/u. i went over the handtyped by information on the chart. pt had no iv.
== END 2018-12-01 21:25 | disposition home or self-care (01) ==
LOC: EDUNIT# 19:37 → ER 19:38
DX: G43.909 Migraine, unspecified, not intractable, without status migrainosus (principal); I73.00 Raynaud's syndrome without gangrene; K21.9 Gastro-esophageal reflux disease without esophagitis; K58.9 Irritable bowel syndrome, unspecified; Z87.19 Personal history of other diseases of the digestive system; Z87.442 Personal history of urinary calculi; Z80.8 Family history of malignant neoplasm of other organs or systems; Z82.49 Family history of ischemic heart disease and other diseases of the circulatory system; Z88.0 Allergy status to penicillin; Z88.8 Allergy status to other drugs, medicaments and biological substances; Z88.5 Allergy status to narcotic agent; Z98.51 Tubal ligation status; Z90.89 Acquired absence of other organs; Z98.890 Other specified postprocedural states
CPT/HCPCS: 96372; 99284

== ENCOUNTER → 2018-12-02 | Outpatient (CLI) | payer BC ==
[~2018-12-02] MED LIST changes: +HYOS-6 PO; +PROM25TA14 PO
== END ==
LOC: LAB 15:34
PROVIDERS: ATTEND Pediatrics
DX: K58.0 Irritable bowel syndrome with diarrhea (principal)
CPT/HCPCS: 36415; 83520; 86038; 86255